=== PATIENT | female | born 1990 | race Hispanic/Latino ===

== ENCOUNTER 2018-12-17 09:44 | Emergency (ER) | payer BC ==
[~2018-12-17] VITALS: Ht 162.6 cm; Wt 74.8 kg
--- OUTSIDE RECORDS SUMMARY | 2018-12-17 09:46 | XMS REPORT | Continuity of Care Document ---
Author Author [employer] Address Unknown Phone Unavailable Care Team Providers Care Retail Loan Originator Assistant Name Role Phone [employer] Unavailable Unavailable Problems Problem Status Onset Date Classification Date Reported Comments Source S/P cholecystectomy Active Problem 11/16/2017 [facility] Fatty liver Active Problem 11/16/2017 [facility] Abnormal LFTs (liver function tests) Active Problem 11/16/2017 [facility] BMI 29.0-29.9,adult Active Diagnosis 11/16/2017 [facility] Overweight (BMI 25.0-29.9) Active Diagnosis 11/16/2017 [facility] Gastroesophageal reflux disease without esophagitis Active Problem 11/16/2017 [facility] Alcohol use Active Problem 11/16/2017 [facility] Acute cystitis without hematuria Active Diagnosis 11/16/2017 [facility] Concern about STD in female without diagnosis Active Diagnosis 11/16/2017 [facility] Medications Medication Details Route Status Patient Instructions Ordering Provider Order Date Source Dicyclomine HCl 1 tablet Orally Active 20 MG Orally Four times a day [facility] Promethazine HCl 1 tablet as needed Orally Active 25 MG Orally every 12 hrs [facility] Zantac 1 tablet at bedtime Orally Active 150 MG Orally Once a day [facility] Allergies, Adverse Reactions, Alerts Substance Category Reaction Severity Reaction type Status Date Reported Comments Source N.K.D.A. Adverse Reaction Info Not Available Adverse Reaction Active 11/15/2017 [facility] Immunizations No Data Provided for This Section Results No Data Provided for This Section Pathology Reports No Data Provided for This Section Diagnostic Reports No Data Provided for This Section Consultation Notes No Data Provided for This Section Discharge Summaries No Data Provided for This Section History and Physicals No Data Provided for This Section Vital Signs Vital Sign Value Date Comments Source Weight 173.3 11/15/2017 [facility] Height 64 11/15/2017 [facility] Temperature Oral (F) 98.3 F 11/15/2017 [facility] Heart Rate 73 11/15/2017 [facility] Diastolic (mm Hg) 76 11/15/2017 [facility] Systolic (mm Hg) 115 11/15/2017 [facility] Weight 174.1 02/10/2017 [facility] Height 64 02/10/2017 [facility] Temperature Oral (F) 98.1 F 02/10/2017 [facility] Heart Rate 66 02/10/2017 [facility] Diastolic (mm Hg) 72 02/10/2017 [facility] Systolic (mm Hg) 109 02/10/2017 [facility] Encounters No Data Provided for This Section Procedures No Data Provided for This Section Assessment and Plan No Data Provided for This Section Plan of Care No Data Provided for This Section Social History No Data Provided for This Section Family History No Data Provided for This Section Advance Directives No Data Provided for This Section Functional Status No Data Provided for This Section
--- OUTSIDE RECORDS SUMMARY | 2018-12-17 09:46 | XMS REPORT ---
Author Author Cami Griffith Organization [employer] Address Unknown Phone Unavailable Care Team Providers Care Asbestos Handler Name Role Phone Cami Griffith CP Unavailable Allergies, Adverse Reactions, Alerts Substance Reaction Event Type N.K.D.A. Info Not Available Non Drug Allergy Problems Problem Type Condition Code Onset Dates Condition Status Assessment S/P cholecystectomy Z90.49 Active Assessment Fatty liver K76.0 Active Assessment Abnormal LFTs (liver function tests) R79.89 Active Problem Fatty liver K76.0 Active Problem BMI 29.0-29.9,adult Z68.29 Active Problem Overweight (BMI 25.0-29.9) E66.3 Active Problem S/P cholecystectomy Z90.49 Active Problem Gastroesophageal reflux disease without esophagitis K21.9 Active Problem Abnormal LFTs (liver function tests) R79.89 Active Problem Alcohol use Z78.9 Active Assessment Overweight (BMI 25.0-29.9) E66.3 Active Assessment BMI 29.0-29.9,adult Z68.29 Active Assessment Alcohol use Z78.9 Active Assessment Gastroesophageal reflux disease without esophagitis K21.9 Active Medications Medication Code System Code Instructions Start Date End Date Status Dosage Dicyclomine HCl [facility] 92357070158 20 MG Orally Four times a day Active 1 tablet Promethazine HCl ND 78323065892 25 MG Orally every 12 hrs Active 1 tablet as needed Zantac [facility] 13658603944 150 MG Orally Once a day Active 1 tablet at bedtime Vital Signs Date/Time: Feb 10, 2017 BMI 29.88 Index Weight 174.1 lbs Height 64 in Temperature 98.1 F Cardiac Monitoring Heart Rate 66 /min Blood Pressure Diastolic 72 mm Hg Blood Pressure Systolic 109 mm Hg Results No Known Results Summary Purpose [employer] Submission
--- OUTSIDE RECORDS SUMMARY | 2018-12-17 09:46 | XMS REPORT ---
Author Author Cami Griffith Organization [employer] Address Unknown Phone Unavailable Care Team Providers Care Bilingual Operator Name Role Phone Cami Griffith CP Unavailable Allergies, Adverse Reactions, Alerts Substance Reaction Event Type N.K.D.A. Info Not Available Non Drug Allergy Problems Problem Type Condition Code Onset Dates Condition Status Assessment BMI 29.0-29.9,adult Z68.29 Active Assessment Acute cystitis without hematuria N30.00 Active Assessment Concern about STD in female without diagnosis Z71.1 Active Assessment Overweight (BMI 25.0-29.9) E66.3 Active Problem Fatty liver K76.0 Active Problem BMI 29.0-29.9,adult Z68.29 Active Problem Overweight (BMI 25.0-29.9) E66.3 Active Problem S/P cholecystectomy Z90.49 Active Problem Gastroesophageal reflux disease without esophagitis K21.9 Active Problem Abnormal LFTs (liver function tests) R79.89 Active Problem Alcohol use Z78.9 Active Medications Medication Code System Code Instructions Start Date End Date Status Dosage Dicyclomine HCl ND 40374778589 20 MG Orally Four times a day Active 1 tablet Zantac ND 86566369650 150 MG Orally Once a day Active 1 tablet at bedtime Promethazine HCl ND 10672972845 25 MG Orally every 12 hrs Active 1 tablet as needed Vital Signs Date/Time: Nov 15, 2017 BMI 29.74 Index Weight 173.3 lbs Height 64 in Temperature 98.3 F Cardiac Monitoring Heart Rate 73 /min Blood Pressure Diastolic 76 mm Hg Blood Pressure Systolic 115 mm Hg Results No Known Results Summary Purpose [employer] Submission
[2018-12-17] MEDS ORDERED: IBUPROFEN 600 MG TAB PO STA (10:30)
[2018-12-17] MEDS ORDERED: HYDROCODONE/APAP 5MG-325MG TAB PO ONE (10:45)
--- NOTE | 2018-12-17 10:54 | Diagnostic Imaging Report ---
X-ray right hand 3 views HISTORY: Pain. COMPARISON: None available. FINDINGS: Bones: No acute displaced fracture. Osseous alignment is within normal limits. Joints: The joint spaces are well-maintained. Soft tissues: The soft tissues appear unremarkable. IMPRESSION: No acute radiographic osseous abnormality. Signed by: Dylan Tsang DO on 12/17/2018 10:50 AM
[2018-12-17 11:55] VITALS: BP 121/75
== END 2018-12-17 12:02 | disposition home or self-care (01) ==
LOC: ER 09:44
DX: S63.654A Sprain of metacarpophalangeal joint of right ring finger, initial encounter (principal); X79.XXXA Intentional self-harm by blunt object, initial encounter; Y92.008 Other place in unspecified non-institutional (private) residence as the place of occurrence of the external cause
CPT/HCPCS: 99283

== ENCOUNTER 2018-12-19 12:27 | Observation (INO) | payer BC ==
[~2018-12-19] VITALS: Ht 162.6 cm; Wt 72.6 kg
--- OUTSIDE RECORDS SUMMARY | 2018-12-19 12:30 | XMS REPORT | Continuity of Care Document ---
Author Author [employer] Address Unknown Phone Unavailable Care Team Providers Care Slate Mixer Name Role Phone [employer] Unavailable Unavailable Problems Problem Status Onset Date Classification Date Reported Comments Source S/P cholecystectomy Active Problem 11/16/2017 [facility] Primary Fatty liver Active Problem 11/16/2017 [facility] Abnormal LFTs (liver function tests) Active Problem 11/16/2017 [facility] BMI 29.0-29.9,adult Active Diagnosis 11/16/2017 [facility] Primary Overweight (BMI 25.0-29.9) Active Diagnosis 11/16/2017 [facility] Primary Gastroesophageal reflux disease without esophagitis Active Problem 11/16/2017 [facility] Primary Alcohol use Active Problem 11/16/2017 [facility] Primary Acute cystitis without hematuria Active Diagnosis 11/16/2017 [facility] Primary Concern about STD in female without diagnosis Active Diagnosis 11/16/2017 [facility] Medications Medication Details Route Status Patient Instructions Ordering Provider Order Date Source Dicyclomine HCl 1 tablet Orally Active 20 MG Orally Four times a day [facility] Promethazine HCl 1 tablet as needed Orally Active 25 MG Orally every 12 hrs [facility] Zantac 1 tablet at bedtime Orally Active 150 MG Orally Once a day [facility] Allergies, Adverse Reactions, Alerts Substance Category Reaction Severity Reaction type Status Date Reported Comments Source N.K.D.A. Adverse Reaction Info Not Available Adverse Reaction Active 11/15/2017 [facility] Immunizations No Data Provided for This [...] Value Date Comments Source Weight 173.3 11/15/2017 [facility] Height 64 11/15/2017 [facility] Temperature Oral (F) 98.3 F 11/15/2017 [facility] Heart Rate 73 11/15/2017 [facility] Diastolic (mm Hg) 76 11/15/2017 [facility] Systolic (mm Hg) 115 11/15/2017 [facility] Weight 174.1 02/10/2017 [facility] Height 64 02/10/2017 [facility] Temperature Oral (F) 98.1 F 02/10/2017 [facility] Heart Rate 66 02/10/2017 [facility] Diastolic (mm Hg) 72 02/10/2017 [facility] Systolic (mm Hg) 109 02/10/2017 [facility] Encounters No Data Provided for This [...]
--- OUTSIDE RECORDS SUMMARY | 2018-12-19 12:30 | XMS REPORT ---
Author Author [facility] Address Unknown Phone Unavailable Care Team Providers Care Family Services Coordinator Name Role Phone TREVA MCKENZIE Unavailable Unavailable Problems This patient has no known problems. Allergies, Adverse Reactions, Alerts This patient has no known allergies or adverse reactions. Medications This patient has no known medications. Results Test Description Test Time Test Comments Text Results Atomic Results Result Comments HAND 3+ VIEWS RIGHT 2018-12-17 10:49:00 [place] [address] Patient Name: DAVIS RAJAN MR #: [id number] : 1990 Age/Sex: 28/F Req #: [id number] Adm Physician: Ordered by: TREVA MCKENZIE DO Report #: [id number] Location: ER Room/Bed: Procedure: [id number] DX/HAND 3+ VIEWS RIGHT Exam Date: 12/17/18 Exam Time: 1020 REPORT STATUS: Signed X-ray right hand 3 views HISTORY: Pain. COMPARISON: None available. FINDINGS: Bones: No acute displaced fracture. Osseous alignment is within normal limits. Joints: The joint spaces are well-maintained. Soft tissues: The soft tissues appear unremarkable. IMPRESSION: No acute radiographic osseous abnormality. Signed by: Dylan Tsang DO on 12/17/2018 10:50 AM Dictated By: DYLAN TSANG DO 1050 Transcribed By: JT on 12/17/18 105 COPY TO: TREVA MCKENZIE DO
--- NOTE | 2018-12-19 12:48 | NUR ---
DR. BENITEZ EVALUATING PATIENT AT THIS TIME, IS TO COTACT DR. DUMAS FOR PLAN OF CARE.
[2018-12-19] MEDS ORDERED: SODIUM CHLORIDE 0.9% 1000ML 1,000 ML IV STA (12:54)
[2018-12-19] MEDS ORDERED: MORPHINE SULFATE 2 MG/ML SYR 1ML IV PRN (13:15)
[2018-12-19] MEDS: PIPER-TAZ 3.375 GM 50 ML IV SCH ×2 (13:37→20:54)
[2018-12-19] MEDS ORDERED: VANCOMYCIN 1GM/NS 250 ML 250 ML IV SCH (13:45)
[2018-12-19 14:03] LABS: BILIRUBIN,URINE NEGATIVE (NEGATIVE); CLARITY,URINE SL CLOUDY (CLEAR); COLOR,URINE YELLOW (YELLOW); KETONES,URINE NEGATIVE (NEGATIVE); LEUKOCYTE ESTERASE ,URINE NEGATIVE (NEGATIVE); NITRITE,URINE NEGATIVE (NEGATIVE); PROTEIN,URINE DIPSTICK NEGATIVE (NEGATIVE); URINE UROBILINOGEN 0.2 mg/dL (0.2 - 1)
[2018-12-19 14:08] LABS: PREGNANCY TEST, URINE NEGATIVE (NEGATIVE)
--- NOTE | 2018-12-19 14:08 | NUR ---
DR. DUMAS EVALUATING PT AT THIS TIME, UPDATING ON PLAN OF CARE AT THIS TIME.
[2018-12-19 14:15] LABS: BASOPHILS % 0.4 % (0.0-1.0); EOSINOPHILS # (AUTO) 0.1 (0.0-0.4); EOSINOPHILS % 0.8 % (0.0-6.0); HEMATOCRIT 40.8 % (34.2-44.1); LYMPHOCYTES # (AUTO) 1.9 (1.0-3.2); LYMPHOCYTES % 22.2 % (18.0-39.1); MEAN CORPUSCULAR HEMOGLOBIN 31.4 pg (28-32); MEAN CORPUSCULAR HGB CONC 34.3 g/dL (31-35); MEAN CORPUSCULAR VOLUME 91.5 fL (81-99); MONOCYTES # (AUTO) 0.8 (0.2-0.8); MONOCYTES % 9.9 % (4.4-11.3); NEUTROPHILS # (AUTO) 5.6 (2.1-6.9); NEUTROPHILS % 66.1 % (38.7-80.0); PLATELET COUNT 160 x10e3/uL (140-360); RED BLOOD COUNT 4.46 x10e6/uL (3.6-5.1)
[2018-12-19 14:25] LABS: BACTERIA,URINE MANY /HPF; EPITHELIAL CELLS,URINE MODERATE /LPF
[2018-12-19] MEDS ORDERED: GADOBENATE DIMEGLUMINE 1 ML IV ONE (14:28)
[2018-12-19 14:37] LABS: ALANINE AMINOTRANSFERASE 108 IU/L (0-55); ALBUMIN 3.8 g/dL (3.5-5.0); ALKALINE PHOSPHATASE 84 IU/L (40-150); ANION GAP 12.6 mmol/L (8-16); BLOOD UREA NITROGEN 10 mg/dL (7-26); BUN/CREATININE RATIO 14 (6-25); CALCIUM 9.4 mg/dL (8.4-10.2); CARBON DIOXIDE 29 mmol/L (22-29); CHLORIDE 99 mmol/L (98-107); CREATININE, SERUM 0.74 mg/dL (0.57-1.11); EST GLOMERULAR FILTRATION RATE > 60 ML/MIN (60-); GLUCOSE 82 mg/dL (74-118); POTASSIUM 3.6 mmol/L (3.5-5.1); SODIUM 137 mmol/L (136-145)
--- NOTE | 2018-12-19 15:38 | Diagnostic Imaging Report ---
TECHNIQUE: Magnetic resonance imaging of the right hand was performed without and with injected contrast. HISTORY: Pain, evaluate for infection COMPARISON: None. FINDINGS: Bone marrow signal is normal no fracture or edema. No T1 replacement. Soft tissue edema and swelling overlying the dorsum of the hand most prominent at the ulnar aspect. No well-defined abscess. The extensor tendons and flexor tendons are intact. The annular pulleys are intact. IMPRESSION: Cellulitis/edema of the left hand dorsal ulnar aspect. No osteomyelitis or abscess. Signed by: Dr. Matt Barlow M.D. on 12/19/2018 3:34 PM
[2018-12-19] MEDS: SODIUM CHLORIDE 0.9% 1000ML 1,000 ML IV SCH ×2 (16:11→21:09)
[2018-12-19] MEDS ORDERED: KETOROLAC TROMETHAMINE 30 MG/ML VIAL IV ONE (16:15)
[2018-12-19 16:23] LABS: INR 0.9; PROTHROMBIN TIME 12.6 seconds (11.9-14.5)
[2018-12-19 16:24] LABS: PARTIAL THROMBOPLASTIN TIME 21.9 seconds (23.8-35.5)
[2018-12-19] MEDS: ONDANSETRON HCL INJ 2MG/ML 2ML 2 MG/ML VIAL IV PRN (21:01)
[2018-12-19] MEDS: MORPHINE SULFATE INJ 4 MG/ML INJ 1ML IV PRN (21:02)
[2018-12-20] MEDS: PIPER-TAZ 3.375 GM 50 ML IV SCH ×4 (00:59→17:05)
[2018-12-20] MEDS: ONDANSETRON HCL INJ 2MG/ML 2ML 2 MG/ML VIAL IV PRN ×4 (01:24→22:50)
[2018-12-20] MEDS: MORPHINE SULFATE INJ 4 MG/ML INJ 1ML IV PRN ×4 (01:24→22:52)
[2018-12-20] MEDS: VANCOMYCIN 1GM/NS 250 ML 250 ML IV SCH ×2 (03:50→15:30)
[2018-12-20] MEDS: SODIUM CHLORIDE 0.9% 1000ML 1,000 ML IV SCH ×3 (03:50→14:27)
[2018-12-20 05:54] LABS: BASOPHILS % 0.1 % (0.0-1.0); EOSINOPHILS # (AUTO) 0.1 (0.0-0.4); EOSINOPHILS % 1.7 % (0.0-6.0); HEMATOCRIT 33.6 % (34.2-44.1); HEMOGLOBIN 11.4 g/dL (12.0-16.0); LYMPHOCYTES # (AUTO) 1.6 (1.0-3.2); LYMPHOCYTES % 20.7 % (18.0-39.1); MEAN CORPUSCULAR HEMOGLOBIN 31.7 pg (28-32); MEAN CORPUSCULAR HGB CONC 33.9 g/dL (31-35); MEAN CORPUSCULAR VOLUME 93.3 fL (81-99); MONOCYTES # (AUTO) 0.6 (0.2-0.8); MONOCYTES % 8.2 % (4.4-11.3); NEUTROPHILS # (AUTO) 5.3 (2.1-6.9); NEUTROPHILS % 68.9 % (38.7-80.0); PLATELET COUNT 142 x10e3/uL (140-360)
[2018-12-20 06:22] LABS: ALANINE AMINOTRANSFERASE 76 IU/L (0-55); ALBUMIN 2.7 g/dL (3.5-5.0); ALKALINE PHOSPHATASE 64 IU/L (40-150); ANION GAP 11.5 mmol/L (8-16); BLOOD UREA NITROGEN 9 mg/dL (7-26); BUN/CREATININE RATIO 14 (6-25); CALCIUM 7.6 mg/dL (8.4-10.2); CARBON DIOXIDE 25 mmol/L (22-29); CHLORIDE 106 mmol/L (98-107); CREATININE, SERUM 0.65 mg/dL (0.57-1.11); EST GLOMERULAR FILTRATION RATE > 60 ML/MIN (60-); GLUCOSE 79 mg/dL (74-118); POTASSIUM 3.5 mmol/L (3.5-5.1); SODIUM 139 mmol/L (136-145)
--- NOTE | 2018-12-20 07:58 | NUR ---
REPORT GIVEN TO RYAN FERRELL WITH SURGERY. SUMMARY REPORT GIVEN TO RN.
[2018-12-20] MEDS ORDERED: BUPIVACAINE HCL 0.5% INJ 30 ML VIAL INJ ONE (08:15)
[2018-12-20] MEDS ORDERED: MUPIROCIN 2% OINT 22 GM TUBE ONE (08:15)
[2018-12-20] MEDS ORDERED: BACITRACIN 50,000 UNIT VIAL ONE (09:26)
[2018-12-20] MEDS ORDERED: FENTANYL CITRATE/PF 100MCG/2 ML INJ ONE ×2 (10:24→14:54)
[2018-12-20] MEDS ORDERED: PIPER-TAZ 3.375 GM 50 ML ONE (10:53)
[2018-12-20] MEDS ORDERED: MORPHINE SULFATE INJ 10 MG/ML ONE (11:07)
[2018-12-20 11:33] VITALS: BP 103/70
--- NOTE | 2018-12-20 11:33 | NUR ---
PT RESTING IN BED AA0X3. PT STATES PAIN TO RIGHT HAND IS TOLERABLE 5/10 RIGHT DRESSING COVERED WITH KERLEX (BLOOD NOTED). AND COVERED WITH BONITA (DRY AND CLEAN) PT HAS A LEFT WRIST 20 G WITH FLUIDS RUNNING , SITE IS CLEAN AND DRY WILL CONTINUE TO MONITOR PT CLOSELY SIDE RAILSX2, BED WHEELS LOCKED, CALL LIGHT IS WITHIN EASY REACH INSTRUCTED TO CALL FOR ASSISTANCE IF NEEDED
[2018-12-20 12:27] VITALS: BP 103/70
[2018-12-20] MEDS ORDERED: PROPOFOL IV EMULSION 10 MG/ML 20 ML VIAL ONE (13:07)
[2018-12-20] MEDS ORDERED: DEXAMETHASONE SOD PHOS INJ 4 MG/ML VIAL ONE (13:07)
[2018-12-20] MEDS ORDERED: SEVOFLURANE INHAL SOLN 250 ML PEN BTL ONE (13:07)
[2018-12-20] MEDS ORDERED: LIDOCAINE HCL 2% LOCAL INJ 5 ML SDV VIAL INJ ONE (13:07)
--- NOTE | 2018-12-20 14:15 | NUR ---
Visit made by the Spiritual Care Department Pastoral Visitor, Susy Dow. PV provided pastoral presence, prayer, hospitality, and supportive listening. Pastoral Visitor informed pt/family of the scope of [employer] and availability. NIURKA AGOSTO [facility] [employer] Spiritual Care Department O: [phone] Pager: [phone] ([phone] number calling from)
[2018-12-20] MEDS ORDERED: MIDAZOLAM HCL 2 MG/2 ML VIAL ONE (14:54)
[2018-12-20 16:51] VITALS: BP 116/70
[2018-12-20 19:20] VITALS: BP 126/60
[2018-12-20 20:34] VITALS: BP 126/60
--- NOTE | 2018-12-20 21:10 | NUR ---
Assessment done.no resp.distress.no fresh bleeding noted.voided.bed locked and in lowest position.phone and call light within reach.family member at bed side.instructed to call for assistance as needed.
[2018-12-20 23:55] VITALS: BP 107/55
[2018-12-21] MEDS: PIPER-TAZ 3.375 GM 50 ML IV SCH ×2 (00:29→05:54)
[2018-12-21] MEDS: SODIUM CHLORIDE 0.9% 1000ML 1,000 ML IV SCH ×2 (00:52→05:55)
--- NOTE | 2018-12-21 03:30 | NUR ---
Blood jluis and sent to the lab for vanco trough.
[2018-12-21] MEDS: MORPHINE SULFATE INJ 4 MG/ML INJ 1ML IV PRN ×2 (03:41→07:40)
[2018-12-21] MEDS: ONDANSETRON HCL INJ 2MG/ML 2ML 2 MG/ML VIAL IV PRN ×2 (03:41→07:40)
[2018-12-21] MEDS: VANCOMYCIN 1GM/NS 250 ML 250 ML IV SCH (04:17)
[2018-12-21 04:46] VITALS: BP 107/59
--- NOTE | 2018-12-21 07:00 | NUR ---
BED SIDE SHIFT REPORT GIVEN TO THE ONCOMING RN.STABLE CONDITION.
[2018-12-21 07:40] VITALS: BP 104/58
[2018-12-21] MEDS ORDERED: MUPIROCIN 2% OINT 22 GM TUBE TOP SCH (09:00)
[2018-12-21 09:20] VITALS: BP 104/58
--- NOTE | 2018-12-21 11:44 | Operative Report ---
DATE OF PROCEDURE: 12/20/2018 SURGEON: Derian Leon MD PREOPERATIVE DIAGNOSIS: Right hand abscess/cellulitis, possible tenosynovitis. POSTOPERATIVE DIAGNOSIS: Right hand abscess. PROCEDURE: Incision and drainage of right hand abscess. ANESTHESIA: General. HISTORY: The patient is a 28-year-old fdrby-zeuo-dxrtripu female, who was admitted through the ER with a right hand abscess. MRI does not show any purulent tenosynovitis. Risks, benefits, and alternatives of treatment were discussed with the patient. She is prepared to undergo the procedure as outlined. DESCRIPTION OF PROCEDURE: The patient was marked preoperatively in the holding area. She was brought to the operating theater and after the induction of adequate general anesthesia, she was prepped and draped in a supine position. A time-out was performed. The right upper extremity was elevated for 3 to 4 minutes and then a tourniquet was inflated to a pressure of 250 mmHg. There was a longitudinal incision on the ulnar aspect of the right index finger MP joint. This was lengthened using a #15 blade. Using blunt dissection, the dissection was carried down to the subcutaneous tissues. Cultures both aerobic and anaerobic are taken. At this point, the area has the loculations broken up by use of a blunt hemostat. Irrigation with copious amounts of antibiotic-containing solution were then performed. The wound was then packed with quarter-inch packing that had been soaked in mupirocin ointment. A sterile dressing was applied. The tourniquet was deflated. All the fingers pinked up nicely and the patient was returned to recovery room in satisfactory condition. Derian Leon MD ER/MODL /[id number]
[2018-12-21] MEDS ORDERED: DOXYCYCLINE HY100 MG PO (11:53)
--- NOTE | 2018-12-21 12:24 | NUR ---
Left wrist IV discontinued. No signs of infiltration noted. 2x2 gauze and tape placed. Taken via wheelchair to personal car. Accompanied by daughter. AAOX4 to time, person, place, situation. Respirations even and unlabored. Discharge instructions, rx, and all personal belongings taken with patient.
--- NOTE | 2018-12-21 12:29 | History and Physical ---
Consultation requested to Derian Leon MD, Hand Surgery; emergency room requesting consult. HISTORY: The patient is a 28-year-old lizsf-yscy-lrrlztaz female, who states that approximately one week ago she struck a wall. The following day, she went to the emergency department because of some pain and swelling. Radiographs were performed and there was noted to be no acute bony injury. She was discharged and the patient states that several days after being seen in the emergency room, the hand became red and swollen. She noticed that she had a small draining area located on the right index finger MPJ area. She denied fever or chills. She went back to the emergency room on December 19, where examination revealed an open wound with purulent drainage, erythema, and swelling. Consultation is now requested by Hand Surgery for optimal management. PAST MEDICAL AND PAST SURGICAL HISTORY: Negative. PHYSICAL EXAMINATION: Current physical exam includes that she is afebrile. The right hand is globally swollen at the level of the MPJs. There is erythema surrounding the 1st and 2nd MPJ. There is full active and passive range of motion and there does not appear to be any significant tenderness with range of motion. The laceration is approximately a 1 cm directly over the MPJ. There is seropurulent material draining from it. LABORATORY DATA: The white blood cell count is slightly elevated at 8.5. Plain radiographs are negative. IMPRESSION: Cellulitis, possible abscess, right hand. PLAN: The patient is going to be admitted and started on intravenous antibiotics. She will obtain a stat MRI this evening. She will be kept n.p.o. after midnight and taken to the OR tomorrow for exploration and drainage of a possible purulent tenosynovitis. Thank you for allowing me to participate in the care of your patient. Derian Leon MD ER/MODL /[id number]
== END 2018-12-21 12:25 | disposition home or self-care (01) ==
LOC: ER 12:27 → ERHOLD 14:38 → UNDOADMIN 14:38 → OR 12-20 07:52 → INTOOBSV 12-20 10:13 → PACU V 12-20 10:13 → MED/SURG 12-20 11:35
PROVIDERS: ADMIT Plastic Surgery; ATTEND Plastic Surgery
DX: L03.113 Cellulitis of right upper limb (principal); L02.511 Cutaneous abscess of right hand
CPT/HCPCS: 10060; 36415 ×3; 73220; 80053 ×2; 80202; 81001; 81025; 85025 ×2; 85610; 85730; 87040; 87071 ×2; 87075; 87086; 87205 ×2; 96374; 96376; 99284; A9577; G0378 ×2; J1100; J1885; J2001; J2250; J2270 ×4; J2405 ×3; J2543 ×3; J2704; J3010; J3370 ×3; J7030 ×3